=== PATIENT | male | born 1985 | race Caucasian/White ===

== ENCOUNTER → 2017-10-13 | Emergency (ER) | payer SELFPAY ==
[2017-10-13] MEDS: FAMOTIDINE 20 MG INJ IV (08:35)
[2017-10-13] MEDS: SOD CHLORIDE 0.9% 1,000 ML IV (08:35)
[2017-10-13] MEDS: LORAZEPAM 2 MG INJ IV (08:35)
[2017-10-13] MEDS: ONDANSETRON 4 MG INJ IV (08:35)
[2017-10-13 08:45] LABS: ADD MAN DIFF? NO
[2017-10-13 08:49] LABS: BASOPHILS % 0.5 % (0.0-2.0); EOSINOPHILS # 0.1 10^3/ul (0.0-0.5); HEMATOCRIT 45.5 % (42.0-52.0); HEMOGLOBIN 15.5 g/dl (14.0-18.0); LYMPHOCYTES % 37.8 % (15.0-51.0); MEAN CORPUSCULAR HEMOGLOBIN 28.4 pg (29.0-33.0); MEAN CORPUSCULAR HGB CONC 34.1 g/dl (32.0-37.0); MEAN CORPUSCULAR VOLUME 83.5 fl (82.0-101.0); MEAN PLATELET VOLUME 8.4 fl (7.4-10.4); MONOCYTE # 0.6 10^3/ul (0.3-0.9); MONOCYTES % 7.2 % (0.0-11.0); NEUTROPHIL # 4.2 10^3/ul (1.6-7.5); NEUTROPHILS % 52.9 % (39.0-77.0); PLATELET COUNT 352 10^3/UL (140-415); RED BLOOD COUNT 5.45 10^6/ul (4.70-6.10); RED CELL DISTRIBUTION WIDTH 12.1 % (11.5-14.5)
[2017-10-13 08:49] LABS: WHITE BLOOD COUNT 7.9 10^3/ul (4.8-10.8)
[2017-10-13 09:07] LABS: ALANINE AMINOTRANSFERASE 43 IU/L (13-69); ALBUMIN 5.6 g/dl (3.3-4.9); ALBUMIN/GLOBULIN RATIO 1.55; ALKALINE PHOSPHATASE 66 IU/L (42-121); ANION GAP 23 (8-16); ASPARTATE AMINO TRANSFERASE 42 IU/L (15-46); BILIRUBIN,INDIRECT 0.5 mg/dl (0-1.1); BILIRUBIN,TOTAL 0.5 mg/dl (0.2-1.3); BLOOD UREA NITROGEN 9 mg/dl (7-20); CALCIUM 10.8 mg/dl (8.4-10.2); CARBON DIOXIDE 30 mmol/L (21-31); CHLORIDE 99 mmol/L (97-110); CREATININE 1.01 mg/dl (0.61-1.24); GLUCOSE 83 mg/dl (70-220); LIPASE 81 U/L (23-300); POTASSIUM 3.5 mmol/L (3.5-5.1); SODIUM 148 mmol/L (135-144); TOTAL PROTEIN 9.2 g/dl (6.1-8.1)
== END | disposition home or self-care (01) ==
LOC: E/R 08:02
DX: F15.10 Other stimulant abuse, uncomplicated (principal)
CPT/HCPCS: 36415; 80053; 83690; 85025; 96374; 96375; 99284-25